=== PATIENT | female | born 1995 | race Caucasian/White ===

== ENCOUNTER → 2019-12-11 | Outpatient (REF) | payer OTHER ==
[~2019-12-11] MED LIST: EXCETAB33 PO; ONDA4TAB6 PO; SPRI28TA
== END ==
LOC: M LAB REF 10:10
PROVIDERS: ATTEND Physician Assistant Medical
DX: J02.9 Acute pharyngitis, unspecified (principal); Z20.828 Contact with and (suspected) exposure to other viral communicable diseases
CPT/HCPCS: 87070; U0003

== ENCOUNTER 2020-02-08 15:30 | Emergency (ER) | payer OTHER ==
[~2020-02-08] VITALS: Ht 167.6 cm; Wt 63.7 kg
[2020-02-08 15:30] VITALS: BP 128/88
[2020-02-08] MEDS ORDERED: EXCETAB33 PO (15:36)
[2020-02-08] MEDS ORDERED: SPRI28TA (15:36)
--- NOTE | 2020-02-08 16:41 | REPVR ---
PROCEDURE INFORMATION: Exam: CT Head Without Contrast Exam date and time: 02/08/2020 4:15 PM Age: 24 years old Clinical indication: Injury or trauma; Fall; Blunt trauma (contusions or hematomas); Additional info: Hit head, +loc TECHNIQUE: Imaging protocol: Computed tomography of the head without contrast. Axial and coronal reformatted images were created and reviewed. Radiation optimization: All CT scans at this facility use at least one of these dose optimization techniques: automated exposure control; mA and/or kV adjustment per patient size (includes targeted exams where dose is matched to clinical indication); or iterative reconstruction. COMPARISON: No relevant prior studies available. FINDINGS: Brain: No CT evidence of acute intracranial hemorrhage or acute territorial infarction. No significant mass effect or midline shift. Basal cisterns patent. Cerebral ventricles: Normal in size and configuration. Bones/joints: No acute osseous abnormality. Paranasal sinuses: Unremarkable. No fluid levels. Mastoid air cells: Grossly unremarkable. Soft tissues: Grossly unremarkable. IMPRESSION: No CT evidence of acute intracranial pathology. Electronically signed by: Johnny Posada On 02/08/2020 16:41:24 PM
[2020-02-08] MEDS ORDERED: ONDA4TAB6 PO (16:52)
== END 2020-02-08 17:22 | disposition home or self-care (01) ==
LOC: M ED 15:30
DX: S06.0X0A Concussion without loss of consciousness, initial encounter (principal); R51.9 Headache, unspecified; R11.0 Nausea; R42 Dizziness and giddiness; W19.XXXA Unspecified fall, initial encounter; Y92.098 Other place in other non-institutional residence as the place of occurrence of the external cause; Z79.3 Long term (current) use of hormonal contraceptives; Z79.82 Long term (current) use of aspirin